=== PATIENT | male | born 1980 | race Two or more races ===

== ENCOUNTER 2018-03-26 16:50 | Emergency (ER) | payer SELFPAY ==
[~2018-03-26] VITALS: Ht 170.2 cm; Wt 86.2 kg
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
[2018-03-26] MEDS: Ketorolac 30mg Inj IM ONE (17:24)
[2018-03-26] MEDS: Methocarbamol 500mg tab ORAL ONE (17:24)
[2018-03-26 17:47] VITALS: BP 125/82
[2018-03-26] MEDS ORDERED: ROBAXIN500 MG PO (18:07)
[2018-03-26] MEDS ORDERED: IBUPROFEN600 MG ORAL (18:07)
[2018-03-26] MEDS ORDERED: LIDOCAINE700 M1 TP (18:07)
[2018-03-26 18:19] VITALS: BP 130/85
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
--- NOTE | 2018-03-27 10:08 | Diagnostic Imaging Report ---
Indication: Chest pain Technique: One view of the chest Comparison: none Findings: Inspiration is suboptimal, with crowding of the bronchovascular markings. The lungs and pleural spaces are clear. Heart size is normal. Impression: No acute process
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
== END 2018-03-26 18:19 | disposition home or self-care (01) ==
LOC: EDBD 16:50 → EMR 18:15
DX: M25.512 Pain in left shoulder (principal); R07.9 Chest pain, unspecified; F17.200 Nicotine dependence, unspecified, uncomplicated; V43.52XA Car driver injured in collision with other type car in traffic accident, initial encounter; Y92.414 Local residential or business street as the place of occurrence of the external cause
CPT/HCPCS: 71045; 73030; 96372; 99283; J1885